=== PATIENT | male | born 1980 | race Caucasian/White ===

== ENCOUNTER 2016-11-13 03:38 | Emergency (ER) | payer OTHER | END 2016-11-13 05:09 | disposition home or self-care (01) | LOC: FER 03:38 | DX: M62.838 Other muscle spasm (principal) | CPT/HCPCS: J1885; J2930 ==

== ENCOUNTER 2021-02-12 13:46 | Emergency (ER) | payer OTHER ==
[~2021-02-12 13:46] MED LIST: IBUPROFEN800 MG PO
[2021-02-12] MEDS ORDERED: MEDROL 4MG DOSEP4 MG PO (15:12)
== END 2021-02-12 15:30 | disposition home or self-care (01) ==
LOC: FER 13:46
DX: U07.1 COVID-19 (principal); I10 Essential (primary) hypertension
CPT/HCPCS: 71045